=== PATIENT | female | born 1985 | race Hispanic/Latino ===

== ENCOUNTER 2017-07-26 15:16 | Emergency (ER) | payer OTHER ==
[2017-07-26 15:44] VITALS: BP 141/96
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
== END 2017-07-26 17:06 | disposition home or self-care (01) ==
LOC: ER 15:16
DX: F32.9 Major depressive disorder, single episode, unspecified (principal); F42.9 Obsessive-compulsive disorder, unspecified